=== PATIENT | male | born 1980 | race Asian ===

== ENCOUNTER 2020-03-25 13:45 | Inpatient (IN) | payer BC, SELFPAY ==
[~2020-03-25] VITALS: Ht 170.2 cm; Wt 69.9 kg
[2020-03-25 14:05] VITALS: Ht 170.2 cm; Wt 69.9 kg
--- NOTE | 2020-03-25 14:14 | NUR ---
PT BIBA FOR COUGH; STS TESTED "INCONCLUSIVE" FOR COVID LAST WEEK BUT STS "MY WHOLE FAMILY HAS IT, AND I HAVE ALL THE SYMPTOMS SO I'M SURE IM POSITIVE." PT NOTED COUGHING WHILE TALKING. NO PAIN AT THIS TIME.
--- NOTE | 2020-03-25 16:12 | NUR ---
PATIENT WAS ADVISED BY A FAMILY FRIEND TO CALL EMS FOR LOW O2 SATURATION AT HOME. PULSE OX AT HOME WAS IN THE MID 80'S. PATIENT HAS HEADACHE FIRST LAST SATURDAY AND HAD NYQUIL AT NIGHT AND GOT BETTER SATURDAY MORNING LAST WEEK BUT AT NIGHT TIME FEVER WILL RETURN. THIS LAST SATURDAY THIS WEEK, COUGH HAS GOTTEN WORSE. COUGH IS NON PRODUCTIVE. PATIENT IS TACHYPNEIC. NO PAIN REPORTED. PATIENT IS ABLE TO MAINTAIN O2 SATURATION ABOVE 95 PERCENT ON 2 LITERS OF O2 VIA NC. BREATH SOUNDS CLEAR X ALL LUNG HINTON.
[2020-03-25 16:30] LABS: BASOPHIL % 0.1 % (0-2); PLATELET COUNT 199 x10^3mcL (130-400); RED CELL DISTRIBUTION WIDTH 12.6 % (11.5-14.5)
--- NOTE | 2020-03-25 16:38 | NUR ---
PROVIDER OKAY TO GIVE TORADOL, NO PAIN OR FEVER AT THIS TIME.
[2020-03-25 16:51] LABS: UA SPECIFIC GRAVITY 1.025 (1.005-1.035); microscopic required? YES; urine erythrocyte NEGATIVE (NEGATIVE)
[2020-03-25 16:54] LABS: CALCIUM 7.7 mg/dL (8.5-10.1); CARBON DIOXIDE 24.3 mmol/L (21-32); CHLORIDE SERUM 104 mmol/L (98-107); CREATININE SERUM 0.9 mg/dL (0.7-1.3); GFR1 > 60 mL/min; GLUCOSE SERUM 101 mg/dL (74-106); POTASSIUM SERUM 3.8 mmol/L (3.5-5.1); SODIUM SERUM 140 mmol/L (136-145)
[2020-03-25 16:59] LABS: ALBUMIN 2.9 g/dL (3.4-5.0); ALKALINE PHOSPHATASE 33 U/L (46-116); ALT/SGPT 45 U/L (16-63); AST/SGOT 54 U/L (15-37); BILIRUBIN TOTAL 0.34 mg/dL (0.20-1.00); C REACTIVE PROTEIN 3.9 mg/dL (<=0.9); LACTIC DEHYDROGENASE (LDH) 316 U/L (100-190); TOTAL PROTEIN, SERUM 6.9 g/dL (6.4-8.2)
--- NOTE | 2020-03-25 17:02 | NUR ---
DR. ROBLES IS AWARE OF COVID ABRIL POSITIVE. PATIENT REMAINS TACHYPNEIC AND WITH SOB ON EXERTION. PATIENT UP TO THE BEDSIDE SINK AND HAS THE O2 VIA NC OFF FOR ABOUT A MINUTE. O2 SATURATION DROPPED TO 93 PERCENT. O2 DOWN TO 1 LITER/MIN VIA NC. O2 SATURATION TO 95.
[2020-03-25 17:39] LABS: CHOLESTEROL/HDL RATIO 4.4
--- NOTE | 2020-03-25 19:20 | NUR ---
REPORT GIVEN TO LENA AT 1825. REPORT GIVEN TO RUTH ANN HUNT.
[2020-03-25 19:21] LABS: AMPHETAMINE QUAL UR NONE DETECTED (See below)
[2020-03-25 20:19] VITALS: BP 106/63
--- NOTE | 2020-03-25 20:21 | NUR ---
RECEIVED PT FROM ED VIA ROSI, CAME IN DUE TO SOB. AAOX4. DENIES HEADACHE/DIZZINESS. ABLE TO FOLLOW COMMANDS. NO SOB NOTED, STATED THAT HE HAS DRY COUGH, O2 SAT=94% ON 3LPM/NC. DENIES CHEST PAIN/PRESSURE, SR ON THE MONITOR. DENIES ABDOMINAL PAIN/NAUSEA/VOMITING. STATED THAT HE HAD LOOSE STOOLS YESTERDAY. VOIDS. IV SITE PATENT AND INTACT. SIDE RAILS UPX2. CALL LIGHT ON REACH. ENDORSED TO PRIMARY NURSE NAUN FOR CONTINUITY OF CARE
--- NOTE | 2020-03-25 21:35 | NUR ---
PCR SWAB DONE, PATIENT PROVIDED WITH BLANKETS AND PILLOW.
[2020-03-26] VITALS (7 sets, daily range): BP systolic 96–124; BP diastolic 53–75
--- NOTE | 2020-03-26 00:20 | NUR ---
PATIENT SLEEPING AT THIS TIME. EU BREATHING NOTED ON 3L NC. TELE #[address] TOLERATING OXYGEN WELL. NO C/O SOB AT THIS TIME.
--- NOTE | 2020-03-26 07:21 | NUR ---
REMAINS IN NO ACUTE DISTRESS AT THIS TIME. NSR ON TELE. ALL NEEDS ATTENDED TO. EU BREATHING NOTED ON 3L NC. CARE ENDORSED TO DAY SHIFT NURSE.
[2020-03-26 07:24] LABS: BASOPHIL % 0.1 % (0-2); PLATELET COUNT 203 x10^3mcL (130-400); RED CELL DISTRIBUTION WIDTH 11.9 % (11.5-14.5)
[2020-03-26 07:50] LABS: CALCIUM 7.5 mg/dL (8.5-10.1); CARBON DIOXIDE 23.2 mmol/L (21-32); CHLORIDE SERUM 104 mmol/L (98-107); GFR1 > 60 mL/min; GLUCOSE SERUM 101 mg/dL (74-106); MAGNESIUM 2.2 mg/dL (1.8-2.4); PHOSPHOROUS 2.7 mg/dL (2.5-4.9); POTASSIUM SERUM 3.6 mmol/L (3.5-5.1); SODIUM SERUM 139 mmol/L (136-145)
--- NOTE | 2020-03-26 07:56 | NUR ---
RECEIVED PATIENT WITH VS WNL, O2 SAT 96% AT 3L NC. PATIENT RESTING IN BED. DROPLET ISOLATION FOR COVID+, IV ACCESS TO LFA, HL, PATENT. BREATHING UNLABORED AND EVEN, NO ACUTE RESP DISTRESS NOTED. SKIN CDI. CALL LIGHT WITHIN REACH, SAFETY MEASURE IN PLACE. WILL CONTINUE TO MONITOR
--- NOTE | 2020-03-26 11:13 | NUR ---
BREATHING EVEN, UNLABORED, NO ACUTE RESP DISTRESS NOTED. STILL HAVING O2 3L NC. SAFETY MEASURE IN PLACE, CALL LIGHT WITHIN REACH. WILL CONTINUE TO MONITOR
--- NOTE | 2020-03-26 12:00 | NUR ---
SPO2 WENT DOWN TO 88-89% AT O2 3L NC. BREATHING LABORED AND PT STATE FEELING SOB. INCREASED O2 TO 5L NC BUT PT STILL HAS DIFFICULTY BREATHING AND O2 SAT 88%. CHANGED O2 TO 6L SIMPLE MASK, O2 SAT WENT UP TO 95%, PT STATES HE BREATHES BETTER WITH SIMPLE MASK AND DIFFICULTY OF BREATH IMPROVED. BREATHING EVEN AND UNLABORED NOW, NO ACUTE RESP DISTRESS NOTED. CALL LIGHT WITHIN REACH, SAFETY MEASURE IN PLACE. WILL CONTINUE TO MONITOR
--- NOTE | 2020-03-26 16:40 | NUR ---
O2 SATS 90% ON 6L VIA SIMPLE MASK, O2 INCREASED TO 8L AAND SATS NOW 92%. WILL NOTIFY .PT PLACED ON CONTINUE PULSE OX.FOR MONITORING.
--- NOTE | 2020-03-26 18:23 | NUR ---
PT RESTING IN BED, BREAETHING EVEN, UNLABORED, NO ACUTE RESP DISTRESS NOTED. O2 SAT 95-97% AT 7L SIMPLE MASK. HL PATENT. DENIES PAIN, SOB, N/V.SAFETY MEASURE IN PLACE, CALL LIGHT WITHIN REACH. WILL ENDORSE TO HEARING CONSULTANT NURSE
--- NOTE | 2020-03-26 18:30 | NUR ---
DR RO ORDER REMDESIVER 200MG INITIAL DOSE NOW AND 100MG X4DAYS, 1UNIT PLASMA (TELEPHONE ORDER)
--- NOTE | 2020-03-26 18:45 | NUR ---
NURSING CO-SIGN THE DOCUMENTATION ENTERED BY THE RN LISA HAS BEEN REVIEWED. REVIEWED/CO-SIGNED BY: Rylee Peters DOCUMENTATION DONE BY:RENETTA NAYLOR
--- NOTE | 2020-03-26 19:10 | NUR ---
RECEIVED PATIENT FROM DAY SHIFT NURSE. PATIENT IN NO ACUTE DISTRESS AT THIS TIME. AWAKE, ALERT AND ORIENTEDX4. DENIES BARRY OR DIZZINESS. SR ON TELE. DENIES CHEST PAIN OR CHEST PRESSURE. EU BREATHING NOTED ON 7L SIMPLE MASK. DENIES SOB AND NO S/S OF SOB. DRY COUGH NOTED, NON PRODUCTIVE. BED IN LOWEST POSITION. CALL LIGHT WITHIN REACH. SIDE RAILS UPX2.
--- NOTE | 2020-03-27 00:10 | NUR ---
SLEEPING AT THIS TIME. NO ACUTE DISTRESS. EU BREATHING NOTED 7L ON SIMPLE MASK. TELE #[address] BED IN LOWEST POSITION. CALL LIGHT WITHIN REACH. SIDE RAILS UP X2. ISOLATION PRECAUTIONS IN PLACE.
--- NOTE | 2020-03-27 04:43 | NUR ---
PRE TRANSFUSION VITALS: TEMP 97.4, HR 89, BP 94/57, RESP 18, SPO2 91%. EDUCATED PATIENT ON POSSIBLE ADVERSE REACTION SYMPTOMS AND INSTRUCTED TO USE CALL LIGHT IMMEDIATELY NEEDED. PATIENT VERBALIZED UNDERSTANDING. TRANSFUSION STARTED SLOW AT 60 ML/HR. CALL LIGHT WITHIN REACH.
--- NOTE | 2020-03-27 05:11 | NUR ---
VITALS STABLE. TOLERATING TRANSFUSION WELL, NO ADVERSE REACTION. PATIENT STATES HE FEELS OK. INSTRUCTED TO USE CALL LIGHT NEEDED FOR ANY REACTION, CALL LIGHT WITHIN REACH. INCREASED RATE TO INFUSE WITHIN AN HR.
[2020-03-27 05:30] VITALS: BP 91/53
--- NOTE | 2020-03-27 07:35 | NUR ---
RECEIVED PT FROM MUD JACK NOZZLEMAN NURSE. PT AWAKE, ALERT AND FOLLOW COMMANDS. NO ACUTE RESP DISTRESS NOTED. O2 SAT 95-97% AT 7L SIMPLE MASK. PT HAS DRY COUGH AND REQUEST COUGH MEDS, WILL GIVE MUCINEX. TELE#22. LAST BM 03/25/20. IV SALINE LOCK TO LFA 20G.DENIES PAIN, SOB, DIZZINESS, N/V AT THIS TIME. SAFETY MEASURE IN PLACE. WILL CONTINUE TO MONITOR.
[2020-03-27 07:37] LABS: PLATELET COUNT 273 x10^3mcL (130-400)
[2020-03-27 07:40] LABS: BASOPHIL % 0 % (0-2)
--- NOTE | 2020-03-27 07:41 | NUR ---
CALLED PHARMACY TO VERIFY REMDESEVIR BECAUSE IT HAS BEEN UNVERIFIED SINCE 1830 YESTERDAY. PHARMACY SAID THAT THE FIRST DOSE OF REMDESEVIR WOULD START AT 1700 TODAY.
[2020-03-27 07:43] LABS: C REACTIVE PROTEIN 8.6 mg/dL (<=0.9); CALCIUM 8.5 mg/dL (8.5-10.1); CARBON DIOXIDE 24.6 mmol/L (21-32); CHLORIDE SERUM 103 mmol/L (98-107); CREATININE SERUM 0.9 mg/dL (0.7-1.3); GFR1 > 60 mL/min; GLUCOSE SERUM 117 mg/dL (74-106); POTASSIUM SERUM 3.7 mmol/L (3.5-5.1); SODIUM SERUM 140 mmol/L (136-145)
[2020-03-27 08:24] VITALS: BP 94/53
[2020-03-27 08:33] LABS: BILIRUBIN DIRECT 0.13 mg/dL (0.0-0.2); BILIRUBIN TOTAL 0.3 mg/dL (0.20-1.00); TOTAL PROTEIN, SERUM 6.7 g/dL (6.4-8.2)
[2020-03-27 09:01] LABS: ALBUMIN 2.7 g/dL (3.4-5.0)
--- NOTE | 2020-03-27 10:14 | NUR ---
RT AT BEDSIDE WITH PATIENT. BREATHING EVEN, UNLABORED. NO ACUTE RESP DISTRESS NOTED. DENIES PAIN, SOB, DIZZINESS. RT INCREASE O2 LEVEL TO 9L SIMPLE MASK BECAUSE O2 SAT WAS 94-95%. O2 SAT IS 97% AT 9L SIMPLE MASK AT THIS TIME. CALL LIGHT WITHIN REACH. WILL CONTINUE TO MONITOR
[2020-03-27 11:52] LABS: ERYTHROCYTE SED RATE 100 mm/hr (0-15)
--- NOTE | 2020-03-27 12:00 | NUR ---
O2 SAT DECREASED TO 88-89% AT 9L SIMPLE MASK, CHANGED O2 TO 15L SIMPLE MASK AND SPO2 STILL 89-90%. CHANGED O2 LEVEL TO 15L NON-REBREATHER AND SPO2 WENT BACK 98-99% PATIENT SITTING IN CHAIR AND WATCH TV NOW. BREATHING EVEN, UNLABORED, NO ACUTE RESP DISTRESS AT THIS TIME. TESSILON GIVEN FOR COUGH. CALL LIGHT WITHIN REACH. WILL CONTINUE TO MONITOR
[2020-03-27 12:13] VITALS: BP 96/51
--- NOTE | 2020-03-27 14:45 | NUR ---
PT DESAT TO 77-82% BECAUSE HE TOOK OFF THE OXYGEN MASK AND WENT TO RESTROOM. REAPPLIED 15L O2 WITH NON-REBREATHER AND O2 SAT STARTED WENT BACK UP SLOWLY 91-95%. REASSURES PT NOT TO TAKE OFF THE OXYGEN MASK AND GO TO RESTROOM. HE NEEDS TO KEEP THE OXYGEN MASK ON AT ALL TIME TO MAINTAIN O2 SATUARATION. URINAL AND BASIN AT BEDSIDE WITH PATIENT. PT VERBALY UNDERSTOOD AND WOULD NOT TAKE OFF OXYGEN MASK ANY MORE. PT IS IN BED, SPO2 95-96%, BREATHING UNLABORED, NO ACUTE RESP DISTRESS NOTED. CALL LIGHT WITHIN REACH. WILL CONTINUE TO MONITOR
[2020-03-27 16:06] VITALS: BP 100/44
--- NOTE | 2020-03-27 17:33 | NUR ---
SPO2 88-91% AT 15L NON-REBREATHER, PT HAS TAKEN OXYGEN MASK ON AND OFF FOR I.S., DRIKING FLUID. REASSURES PATIENT AGAIN TO KEEP OXYGEN MASK ON. SPOKE AND NOTIFIED RT CHUCK ABOUT PATIENT CONDITION. PT IS SITTING IN CHAIR AND WATCH TV. REMDESIVIR RUNNING AT 100ML/HR INFUSING WELL, IV SITE PATENT, CDI AND NO S/S OF INFECTION/INFILTRATION. CALL LIGHT WITHIN REACH. WILL CONTINUE TO MONITOR.
--- NOTE | 2020-03-27 18:39 | NUR ---
PT RESTING IN BED. O2 SAT 85-92% BECAUSE PT KEEP TAKE OFF OXYGEN MASK. COMMODE AT BEDSIDE TO PREVENT PT GOING TO RESTROOM AND TAKE OFF THE O2 MASK. BREATHING UNLABORED AND NO ACUTE RESP DISTRESS NOTED. REMDESIVIR COMPLETED. HL PATENT. DENIES PAIN, SOB, DIZZINESS. WILL ENDORSE TO [facility] SHIFT NURSE
--- NOTE | 2020-03-27 18:59 | NUR ---
REMAINS IN NO ACUTE DISTRESS. ON NRB AT 15L SATS 88-92%. NO C/O PAIN OR DISCOMFORT. CALL LIGHT WITHIN REACH.
--- NOTE | 2020-03-27 19:00 | NUR ---
NURSING CO-SIGN THE DOCUMENTATION ENTERED BY THE RN LISA HAS BEEN REVIEWED. REVIEWED/CO-SIGNED BY: Rylee Peters DOCUMENTATION DONE BY: DAYDAY JACKSON
--- NOTE | 2020-03-27 19:10 | NUR ---
RECEIVED PATIENT FROM DAY SHIFT NURSE. AWAKE, ALERT AND ORIENTEDX4. EU BREATHING NOTED ON 15L NON REBREATHER. DENIES SOB AT THIS TIME. ENCOURAGED TO LAY PRONE AND PRACTICE BREATHING EXERCISES. NSR ON TELE. URINAL AND COMMODE AT BEDISDE. NO C/O OF PAIN. DRY COUGH NOTED. IV WNL. BED IN LOWEST POSITION. CALL LIGHT WITHIN REACH. SIDE RAILS UP X2.
[2020-03-27 20:38] VITALS: BP 103/60
--- NOTE | 2020-03-28 00:10 | NUR ---
PATIENT SLEEPING AT THIS TIME, NO ACUTE DISTRESS. EU BREATHING NOTED ON 15L NON REBREATHER. SPO2 > 90%. NSR ON TELE. CONT PULSE OX IN PLACE. URINAL/COMMODE AT BEDSIDE. BED IN LOWEST POSITION. CALL LIGHT WITHIN REACH. PROTOCOLS IN PLACE.
[2020-03-28 05:40] VITALS: BP 92/52
--- NOTE | 2020-03-28 06:10 | NUR ---
PATIENT SPO2 DROPPING TO 70S AND SUSTAINING. PATIENT ON 15L NON REBREATHER AT THIS TIME. CALLED RT AND STATED THEY WOULD COME UP. PATIENT PLACED ON OXYMIZER AND NON REBREATHER. SPO2 AT 91% AT THIS TIME.
--- NOTE | 2020-03-28 06:56 | NUR ---
PATIENT SPO2 95% AT THIS TIME ON NO REBREATHER AND OXYMIZER. NO DISTRESS AT THIS TIME. WILL CONTINUE TO MONITOR. WILL ENDORSE CARE TO ONCOMING SHIFT NURSE.
[2020-03-28 07:24] LABS: BASOPHIL % 0.1 % (0-2); PLATELET COUNT 308 x10^3mcL (130-400)
[2020-03-28 07:38] LABS: CALCIUM 8.3 mg/dL (8.5-10.1); CARBON DIOXIDE 26.8 mmol/L (21-32); CHLORIDE SERUM 104 mmol/L (98-107); CREATININE SERUM 0.8 mg/dL (0.7-1.3); GFR1 > 60 mL/min; GLUCOSE SERUM 116 mg/dL (74-106); POTASSIUM SERUM 3.8 mmol/L (3.5-5.1); SODIUM SERUM 140 mmol/L (136-145)
--- NOTE | 2020-03-28 08:00 | NUR ---
GAVE PATIENT TEACHING ON IMPORTANCE OF PRONING AND OF DOING IS, HE AGREED. HE SAID HE WOULD LATER.
[2020-03-28 08:03] LABS: BILIRUBIN DIRECT 0.14 mg/dL (0.0-0.2); BILIRUBIN TOTAL 0.3 mg/dL (0.20-1.00); TOTAL PROTEIN, SERUM 7.1 g/dL (6.4-8.2)
[2020-03-28 08:07] LABS: ALBUMIN 2.8 g/dL (3.4-5.0)
[2020-03-28 08:35] VITALS: BP 95/60
--- NOTE | 2020-03-28 09:32 | NUR ---
AAO TIMES 4. TELE # 22 SR. LUNGS DIMINISHED BILATERALLY. O2 SAT ON 15L NRB AND OXIMIZER 12L IS 89-90%. BS'S ACTIVE TIMES 4. DAMIAN STRONG. SOB WITH ACTIVITY. COOPERATIVE. NO C/O PAIN.
[2020-03-28 12:28] VITALS: BP 96/54
[2020-03-28 16:33] VITALS: BP 94/52
--- NOTE | 2020-03-28 17:28 | NUR ---
AAO TIMES 4. TELE # 22 SR. NO C/O PAIN. O2 15 L NRB MASK, AND OXIMIZER 12L. O2 SAT 88-90%. IV SITE LEFT HAND PATENT, CDI.
--- NOTE | 2020-03-28 20:00 | NUR ---
RECEIVED PT SITTING IN BED EATING THE REST OF HIS DINNER. PT DOES NOT APPEAR TO BE IN ANY DISTRESS. TELE 22 SHOWS NSR WITH HR AT 81. NO SOB NOTED AT THIS TIME. PT ON 15L O2 VIA NRB MASK AND 12L OXIMIZER. ENCOURAGED PT TO UTILIZE INCENTIVE SPIROMETER. BS ACTIVE IN ALL FOUR QUADS. NO ABD PAIN NOTED. ABD IS FLAT NON DISTENDED. BSC AT BEDSIDE. PT VOIDING FREELY WITH URINAL, EMPTIED 700ML OF LIGHT YELLOW URINE. FULL ROM. IV TO LFA PATENT. SHIFT ASSESSMENT COMPLETED. CALL LIGHT WITHIN REACH. BED IS IN LOWEST POSITION. WILL CONTINUE TO MONITOR CLOSELY.
--- NOTE | 2020-03-28 22:00 | NUR ---
PT RESTING IN PRONE POSITION, BREATHING EASILY ON O2 UNCHANGED. ALL DUE MEDS GIVEN ORDERED. CALL LIGHT WITHIN REACH. WILL CONTINUE TO MONITOR CLOSELY.
[2020-03-28 22:19] VITALS: BP 115/56
--- NOTE | 2020-03-29 04:00 | NUR ---
PT DESATS AT TIMES, ENCOURAGED PT TO CONTINUE TO WEAR NRB AND PRONE, QUICKLY AFTER PT O2 SAT INCREASES TO 100%. ALL NEEDS TENDED TO. WILL CONTINUE TO MONITOR CLOSELY.
[2020-03-29 05:49] VITALS: BP 93/52
--- NOTE | 2020-03-29 06:53 | NUR ---
PT SLEPT ON AND OFF THROUGH OUT THE NIGHT. REMAINS ON 12L O2 OXIMIZER AND 15L O2 NRB.ALL NEEDS TENDED TO. WILL ENDORSE TO INCOMING SHIFT.
[2020-03-29 07:17] LABS: RED CELL DISTRIBUTION WIDTH 12.8 % (11.5-14.5)
[2020-03-29 07:47] LABS: ALKALINE PHOSPHATASE 42 U/L (46-116); ALT/SGPT 106 U/L (16-63); AST/SGOT 73 U/L (15-37); BILIRUBIN DIRECT 0.13 mg/dL (0.0-0.2); BILIRUBIN TOTAL 0.4 mg/dL (0.20-1.00); CALCIUM 8.4 mg/dL (8.5-10.1); CARBON DIOXIDE 29.8 mmol/L (21-32); CHLORIDE SERUM 102 mmol/L (98-107); CREATININE SERUM 0.9 mg/dL (0.7-1.3); GFR1 > 60 mL/min; GLUCOSE SERUM 110 mg/dL (74-106); POTASSIUM SERUM 3.7 mmol/L (3.5-5.1); SODIUM SERUM 140 mmol/L (136-145); TOTAL PROTEIN, SERUM 7.4 g/dL (6.4-8.2)
[2020-03-29 07:49] LABS: ALBUMIN 2.8 g/dL (3.4-5.0)
[2020-03-29 08:23] LABS: BASOPHIL % 0 % (0-2); PLATELET COUNT 405 x10^3mcL (130-400)
[2020-03-29 09:19] VITALS: BP 89/54
--- NOTE | 2020-03-29 10:51 | NUR ---
AAO TIMES 4. TELE # 22 SR. LUNGS DIMINISHED BILATERALLY. O2 SAT ON NRB 15L AND OXIMIZER 12L IS 90%. BS'S ACTIVE TIMES 4. DAMIAN STRONG. PERIPHERAL PULSES PALPABLE. NO EDEMA. COOOPERATIVE. IV SITE PATENT, CDI.
[2020-03-29 13:31] VITALS: BP 90/48
--- NOTE | 2020-03-29 14:48 | NUR ---
HE HAS BEEN LAYING ON HIS SIDE OR ABDOMEN, AND HIS OXYGEN SAT IS AROUND 94% ON JUST THE OXIMIZER, NO NON REBREATHER.
--- NOTE | 2020-03-29 15:39 | NUR ---
ROSSY GUN STOCKER AWARE OF PATIENT BP OF 90/48, SHE DISCONTINUED THE LASIX IV.
[2020-03-29 17:33] VITALS: BP 86/52
--- NOTE | 2020-03-29 17:58 | NUR ---
AAO TIMES 4. TELE # 22 SR. VS'S STABLE. COOPERATIVE. NO C/O PAIN. HE HAS BEEN COOPERATING WITH TURNING HIMSELF SIDE TO SIDE AND PRONE, AND HIS O2 SAT HAS BEEN 94% ON JUST THE OXIMIZER 12L.
--- NOTE | 2020-03-29 20:00 | NUR ---
RECEIVED PT AA&O. NO C/O PAIN. SITTING UP IN BED. IV PATENT. REMDESIVERE FINISHED . VITALS STABLE. WILL CONTINUE TO MONITOR.
[2020-03-29 22:02] VITALS: BP 92/51
--- NOTE | 2020-03-30 06:52 | NUR ---
PT RESTING COMFORTABLY. ONLY USED OXIMYZER 12 L THROUGHOUT NIGHT WITH OUT RESPIRATORY DITRESS. BP RUNS LOW. PT EDUCATED ON RISING SLOWLY AND SITTING ON EDGE OF BED FOR A MINUTE BEFORE TRYING TO AMBULATE. NO DIZZINESS NOTED. CALL LLIGHT WITHIN REACH
[2020-03-30 07:15] LABS: BILIRUBIN DIRECT 0.17 mg/dL (0.0-0.2); BILIRUBIN TOTAL 0.5 mg/dL (0.20-1.00); TOTAL PROTEIN, SERUM 6.8 g/dL (6.4-8.2)
--- NOTE | 2020-03-30 07:30 | NUR ---
RECIEVED REPORT FROM PM NURSE. PT CURRENTLY IN COVID ISOLATION. HR 71, O2 SAT 97%. WILL FOLLOW UP SHORTLY
[2020-03-30 08:48] VITALS: BP 77/41
--- NOTE | 2020-03-30 11:33 | NUR ---
PT LYING IN BED COMFORTABLY. PRONE POSITION. BREATHING EVEN, NO WOB NOTED. HR 62, O2 SAT 92% 12L OXYMIZER. PT HAS NO QUESTIONS/CONCERNS AT THIS TIME. NO C/O PAIN. WILL CONTINUE TO MONITOR.
[2020-03-30 11:37] VITALS: BP 81/47
--- NOTE | 2020-03-30 14:16 | NUR ---
PT USING INCENTICE SPIROMETER WHILE IN BED. EDUCATED ON USE. BREATHING EVEN, UNLABORED. O2 SAT 92% 12L OXYMIZER. PT IN NO APAPRENT DISTRESS OR DISCOMFORT. WILL CONTINUE TO MONITOR. BED IN LOWEST POSITION, RAILS UP, CALL LIGHT WITHIN REACH
--- NOTE | 2020-03-30 15:48 | NUR ---
PT LYING IN BED PRONING. STATES "I FEEL GOOD!". O2 SAT 99%, HR 66. WILL CONTINUE TO MONITOR. BED IN LOWEST POSITION, RAILS UP, CALL LIGHT WITHIN REACH
[2020-03-30 17:36] VITALS: BP 99/59
--- NOTE | 2020-03-30 17:44 | NUR ---
PT LYING IN BED SUPINE. BREATHING EVEN, UNLABORED. HR 59, O2 SAT 97%. BREATHING EVEN, UNLABORED. PT IN NO ACUTE DISTRESS OR DISCOMFORT. BED IN LOWEST POSITION, RAILS UP, CALL LIGHT WITHIN REACH.
--- NOTE | 2020-03-30 18:59 | NUR ---
PT LYING IN BED, PRONING. BREATHING EVEN, UNLABORED. PT REPORTS NO DISCOMFORT OR PAIN. WILL ENDORSE TO PM NURSE
--- NOTE | 2020-03-30 20:00 | NUR ---
RECEIVED PT AA&0. NO C/O PAIN. NO DISTRESS NOTED. OXIMYZER 12 L. NO HIGH FLOW NEEEDED. 97% O2. ASKED IF HE WANTED TO TRY AND REDUCE FLOW SLIGHTLY AND HE STATED IN AM HE WOULD FEEL MORE CPOMFORTABLE. CALL LIGHT WITHIN REACH. WATER GIVEN. DUMPED 250 MLS YELLOW URINE
[2020-03-30 21:07] VITALS: BP 93/50
[2020-03-31] VITALS (8 sets, daily range): BP systolic 83–138; BP diastolic 49–58
[2020-03-31 07:01] LABS: BASOPHIL % 0.2 % (0-2); RED CELL DISTRIBUTION WIDTH 12.8 % (11.5-14.5)
[2020-03-31 07:18] LABS: PLATELET COUNT 464 x10^3mcL (130-400)
--- NOTE | 2020-03-31 07:21 | NUR ---
RECIEVED REPORT FROM PM NURSE. PT CURRENTLY IN COVID ISOLATION. WILL MAKE ROUNDS SHORTLY.
[2020-03-31 07:34] LABS: ALBUMIN 2.8 g/dL (3.4-5.0); ALKALINE PHOSPHATASE 40 U/L (46-116); ALT/SGPT 133 U/L (16-63); AST/SGOT 59 U/L (15-37); BILIRUBIN DIRECT 0.17 mg/dL (0.0-0.2); BILIRUBIN TOTAL 0.5 mg/dL (0.20-1.00); CALCIUM 8.7 mg/dL (8.5-10.1); CHLORIDE SERUM 102 mmol/L (98-107); CREATININE SERUM 0.9 mg/dL (0.7-1.3); GFR1 > 60 mL/min; GLUCOSE SERUM 88 mg/dL (74-106); POTASSIUM SERUM 4.1 mmol/L (3.5-5.1); SODIUM SERUM 139 mmol/L (136-145)
--- NOTE | 2020-03-31 10:18 | NUR ---
PY SITTING IN BED. EDUCATED ON DISEASE PROCESS AND TREATMENT GOALS. PT HAS NO FURTHER QUESTIONS OR CONCERNS AT THIS TIME. BREATHING EVEN, UNLABORED. NO ACUTE DISTRESS OR DISCOMFORT. BED IN LOWEST POSITION, CALL LIGHT WITHIN REACH, RAILS UP
--- NOTE | 2020-03-31 14:19 | NUR ---
PT PRONING. HR 85, O2 SAT 94 12L OXYMIZER. PT BREATHING EVEN, UNLABORED. PT IN NO ACUTE DISTRESS OR DISCOMFORT. WILL CONTINUE TO MONITOR. BED IN LOWEST POSITION, RAILS UP, CALL LIGHT WITHIN REACH.
--- NOTE | 2020-03-31 14:54 | NUR ---
1. Continue with regular diet as tolerate
--- NOTE | 2020-03-31 14:54 | NUR ---
Initial Nutrition Assessment: LbA MOE NAYLOR 40M MR Dx: PNA, hypoxia, COVID+ PMHx: none noted PSHx: none noted Labs: (03/31) Hct 39L, BUN 31H, AST 59H, ALT 133H, Alk ph 40L, albumin 2.8L, (03/27) CRP 8.6H, (03/25) HDL 29L *other lipid panel WNL on 03/25 Meds: Zinc sulfate, vitamin D, Vitamin C, Decadron, Lovenox, Remdesevir, [place], Tessalon, Mucinex, Tylenol Diet: Regular PO intake since admission: 15-100% x 14 meals with average PO intake of 69% Ht: 170.18cm/67in Wt: 69.853kg/154lbs BMI: 24.1 Bed scale: not accessible IBW:67.27kg/148lbs %IBW: 103.84% UBW: unknown Age: 40 Food Allergies: unknown Edema: no edema noted Last BM: 03/31 and formed Skin: skin intact Nagi: 21 Per H and P (03/25), Patient is a 40-year-old male with no significant pmhx who comes to the ED for having fever, sob and dry cough. He states that his brother's family was covid positive and he was with them 2 weeks ago. He that started having headache, fever and chills for a week, but then since Saturday he also started to develop cough and shortness of breath. He is also being feeling really tired and fatigued. His and 10-year-old son are also COVID positive. Today he felt really lightheaded and dizzy, his bought an oximeter today and it measured his oxygen to be at 85%. It was then that he decided to come to the ED. Patient denies any symptoms, denies nausea, vomit, diarrhea, chest pain or constipation. Pt was admitted with dx: acute respiratory failure and sepsis 2/2 COVID 19 PNA, DVT RD Note (03/31/2020) RD tried to reach pt via phone, but pt did not respond to bedside phone call. Per pt's primary RN, pt had 90% of his breakfast today, and he was able to tolerate diet with no chewing/swallowing difficulty. Per progress note (03/31), pt is on 12 L oxymizer. Pt's current PO intake is currently meeting 92.5% of estimated kcal needs, 83% of estimated protein needs. Problem with: N/V/D/C: none per RN Problems with: Chewing: Swallowing: none per RN Current appetite: good per RN; finished 90% of breakfast this AM Recent wt change: unknown %wt change: unknown Vitamin/Supplement use: unknown Special diet at home: unknown Physical activity: unknown Nutrition education given (specify specific nutrition education and handout given): not given at this time. No indication for nutritional education. Food-drug interactions? Education given? n/a Estimated Nutritional Needs Based on ideal body weight (67kg) Energy: 1205-3506 kcal/day (30-35 kcal/kg for viral infection and sepsis) Protein: 100-134 g/day (1.5-2 g/kg for viral infection and sepsis) Fluid: 2669-9197 mL/day (1 mL/kcal) Nutrition Diagnosis: 1. Increased energy and protein needs r/t viral infection and critical illness a/e/b pt has sepsis and COVID 19. Intervention 1. Continue with regular diet as tolerate Monitor/Evaluate Goal: PO intake at least 75% of estimated needs Monitor: PO intake, Labs, GI function F/U in 3-5 days as moderate risk 04/03-
--- NOTE | 2020-03-31 15:47 | NUR ---
PATIENT OBSERVED IN PRONE POSITION AT THIS TIME. PATIENT O2 IS 96-97%. DECREASED PATIENT OXYGEN TO 10 LPM OXYMIZER. STATES HE FEELS "HE CAN BREATH BETTER" WHILE PRONE. ENCOURAGED TO KEEP PRONING TOLERATED.
--- NOTE | 2020-03-31 18:16 | NUR ---
PT SITTING IN CHAIR. STATES HE HAS BEEN PRONING "I FEEL MUCH BETTER NOW". BREATHING EVEN, UNLABORED. SUPPLEMENTAL O2 REDUCED TO 10L OXYMIZER. PT TOLERATING WELL. WILL ENDORSE TO PM NURSE. BED IN LOWEST POSITION, RAILS UP, CALL LIGHT WITHIN REACH.
--- NOTE | 2020-03-31 20:15 | NUR ---
ASSESSMENT COMPLETE CALL LIGHT IN REACH PLAN OF CARE REVIEWED WILL CONTINUE TO MONITOR AND ASSESS
--- NOTE | 2020-04-01 00:04 | NUR ---
NO CHANGES AT THIS TIME CONDITION GUARDED WILL CONTINUE TO MONITOR AND ASSESS
--- NOTE | 2020-04-01 04:59 | NUR ---
NO CHANGES NOTED ALL NEEDS ANTICIPATED AND MET CONDITION GUARDED
[2020-04-01 07:08] VITALS: BP 91/48
[2020-04-01 07:30] LABS: BASOPHIL % 0.1 % (0-2); RED CELL DISTRIBUTION WIDTH 12.1 % (11.5-14.5)
[2020-04-01 07:32] LABS: CALCIUM 8.6 mg/dL (8.5-10.1); CARBON DIOXIDE 27.6 mmol/L (21-32); CHLORIDE SERUM 103 mmol/L (98-107); CREATININE SERUM 0.9 mg/dL (0.7-1.3); GFR1 > 60 mL/min; GLUCOSE SERUM 87 mg/dL (74-106); SODIUM SERUM 139 mmol/L (136-145)
[2020-04-01 09:14] VITALS: BP 87/49
[2020-04-01 09:38] LABS: PLATELET COUNT 504 x10^3mcL (130-400)
--- NOTE | 2020-04-01 11:18 | NUR ---
PATIENTIS AOX4, NSR, RESPIRATIONS EVEN AND UNLABORED ON 8L OXYMIZER LUNGS DIMINISHED BIALTERAL BASES. REPORTS SOB ON EXERTION. ENCOURAGED INCENTIVE SPIROMETER USE. URINE ID DARK, ENCOURAGED HYDRATION. UPDATED PATIENT ON PLAN OF CARE. PT VERBALIZED UNDERSTANDING. WILL CONTINUE TO MONITOR.
[2020-04-01 13:30] VITALS: BP 88/49
[2020-04-01 17:21] VITALS: BP 91/55
--- NOTE | 2020-04-01 18:34 | NUR ---
PATIENT IS IN [facility], SAYS THAT TODAY WAS A "TURNING POINT" FOR HIM. WAS ON 8L OXYMIZER SPO2 96%. ABLE TO AMBULATE TO THE BATHROOM WITH ONLY MILD SHORTNESS OF BREATH, WHICH ACCORDING TO THE PATIENT IS MUCH IMRPOVED FROM YESTERDAY. WEANED TO 6L OXYMIZER 95%. ENCOURAGED DEEP BREATHING/INCENTIVE SPIROMETER. WILL ENDORSE TO NIGHT RN.
--- NOTE | 2020-04-01 19:40 | NUR ---
PT RECEIVED IN BED, RESTING COMFORTABLY A/O X 4 ABLE TO MAKE NEEDS KNOWN, ABLE TO FOLLOW COMMANDS, PT SPEECH IS CLR, NO C/O BARRY OR DIZZNESS. LUNGS SOUNDS DIMINISHED BILATERALLY, RESP EVEN AND UNLABORED, PT REPORTS FEELING BETTER AND IS ABLE TO TOLERATE MORE GETTING UP IN BED WITHOUT BEING EXTREMELY SOB, PT ON 6L OXYMIZER WITH SPO2 OF 93%. RADIAL AND PEDAL PULSES PRESENT, NO EDEMA NOTED. PT ON TELE #22 NSR, NO C/O CHEST PAIN. ABD FLAT AND SOFT, ACTIVE BS PRESENT X4 QUADS, NO C/O NVD. VOIDS FREELY, NO REPORTED DISCOMFOT OR PAIN. PT ABLE TO AMBULATE TO THE RESTROOM, GENERALIZED WEKANESS OBSERVED, JOINTS INTACT, FULL ACTIVE ROM. BED TO LOWEST POSITION, CALL LIGHT WITHINN REACH, WILL CONT TO MONITOR PT FOR CHANGES IN CONDITION.
[2020-04-01 20:41] VITALS: BP 98/59
--- NOTE | 2020-04-01 22:41 | NUR ---
HOLD INFLUENZA VACCINE FOR NOW PER DR. MENDOZA. MADE THE PT AWARE.
[2020-04-02 05:31] VITALS: BP 86/49
--- NOTE | 2020-04-02 06:55 | NUR ---
PT BP RE TAKEN MULTIPLE TIMES. HIGHEST BP 90/40, LOWEST IS 80/45. PT DENIES DIZZINES, SOB, BARRY OR CHEST PAIN. DR. MCCLURE NOTIFIED. RECEIVED NO NEW ORDER AT THIS TIME.
[2020-04-02 07:21] VITALS: BP 90/40
[2020-04-02 08:11] LABS: CALCIUM 8.6 mg/dL (8.5-10.1); CARBON DIOXIDE 25.7 mmol/L (21-32); CHLORIDE SERUM 102 mmol/L (98-107); CREATININE SERUM 0.8 mg/dL (0.7-1.3); GFR1 > 60 mL/min; GLUCOSE SERUM 86 mg/dL (74-106); POTASSIUM SERUM 3.6 mmol/L (3.5-5.1); SODIUM SERUM 137 mmol/L (136-145)
[2020-04-02 08:58] VITALS: BP 79/49
--- NOTE | 2020-04-02 10:39 | NUR ---
The patient's BP was low this morning. Checked patient, he is in bed resting. He had no complaints of dizziness and/or nausea. Legs elevated, will continue to monitor. No BP medications, all medications per providers orders given. The patient made comfortable. Will contiue to monitor. Call light within reach.
[2020-04-02 11:18] LABS: BASOPHIL % 0.1 % (0-2)
[2020-04-02 11:46] LABS: PLATELET COUNT 477 x10^3mcL (130-400)
--- NOTE | 2020-04-02 11:55 | NUR ---
The patient is alert and oriented x4. Able to ambulate. BP retaken= 91/58, oxygem saturation around 94%-96% on 6L via oximyzer. Turned oxygen lower set at 5L via nasal cannula. The patient's oxygen saturation is curebtly at 92%-94%. Will continue to monitor. Call light norman jacobson.
[2020-04-02 12:57] VITALS: BP 95/56
[2020-04-02 17:17] VITALS: BP 91/59
--- NOTE | 2020-04-02 19:50 | NUR ---
RECEIVED IN BED, RESTING COMFORTABLY. A/O X4 ABLE TO MAKE NEEDS KNOWN, ABLE TO FOLLOW COMMANDS, SPEECH IS CLR, NO BARRY OR DIZZINESS. RESP IS EVEN AND UNLABORED,REPORTS SLIGHT SOB UPON WALKING, ON RA AT THIS TIME WITH SPO2 OF 94%, INSTRUCTED PT TO REPORT RIGHT AWAY IF BREATHING WORSEN. RADIAL AND PEDAL PULSES PRESENT, NO EDEMA NOTED. ON TELE 22, NSR, NO C/O CHEST PAIN AT THIS. ABD FLAT AND SOFT, ACTIVE BS PRESENT X4, NO NVD, LAST BM 04/02. VOIDS FREELY, NO C/O PAIN OR DICOMFORT. SKIN IS WARM, DRY AND INTACT. IV SITE TO LFA PATENT AND FLUSHING WELL. GENERALIZED WEAKNESS, ABLE TO AMBULATE TO THE RR. BE TO LOWEST POSITION, CALL LIGHT WITHIN REACH, WILL CONT TO MONITOR.
[2020-04-02 20:59] VITALS: BP 127/83
[2020-04-03 06:18] VITALS: BP 90/52
--- NOTE | 2020-04-03 06:44 | NUR ---
PT IN BED RESTING COMFORTABLY WITH EYES CLOSED, EASILY AROUSABLE. NO C/O PAIN, NO ACUTE DISTRESS NOTED. RESP IS EVEN AND UNLABORED, ON RA WITH SPO2 OF 93%. PT EXPRESSED HE WOULD LIKE TO GET ISCHARGE TODAY. PT STATES HE IS FELING SO MUCH BETTER, AND CAN CONTINUE COURSE OF HIS TREATMENT AT HOME WHERE HE CAN BE MORE COMFORTABLE AND GET MUCH MORE REST. WILL ENDORSE TO AM SHIFT NURSE TO LET MEDICAL TEAM KNOW THAT PT WOULD LIKE TO GET AN UPDATE REGARING HIS CARE. BED TO LOWEST POSITION, CALL LIGHT WITHIN REACH. WILL CONT TO MONITOR FOR CHANGES IN CONDITION AND ENDORSE TO NEXT SHIFT NURSE.
[2020-04-03 08:15] LABS: CALCIUM 8.9 mg/dL (8.5-10.1); CARBON DIOXIDE 29.7 mmol/L (21-32); CHLORIDE SERUM 105 mmol/L (98-107); GFR1 > 60 mL/min; GLUCOSE SERUM 86 mg/dL (74-106); POTASSIUM SERUM 3.9 mmol/L (3.5-5.1); SODIUM SERUM 140 mmol/L (136-145)
[2020-04-03 08:45] LABS: BASOPHIL % 0.1 % (0-2); RED CELL DISTRIBUTION WIDTH 13.2 % (11.5-14.5)
[2020-04-03 08:54] VITALS: BP 88/51
--- NOTE | 2020-04-03 12:35 | NUR ---
THE PATIENT IS ALERT AND ORIENTED X4. HE IS AMBULATORY, INDEPENDENT. THE PATIENT IS ON ROOM AIR, NO SOB NOTED. O2 SAT.= 92%-94%. NO COMPLAINTS OF PAIN. THE PATIENT IS IN DISCHARGE PLANNING. CLINICAL RESEARCH SPEC TO COORDINATE OXYGEN AT HOME. THE PATIENT IS AWARE. WILL CONTINUE TO MONITOR. CALL LIGHT WITHIN REACH.
[2020-04-03 13:11] VITALS: BP 90/56
[2020-04-03 14:24] LABS: PLATELET COUNT 509 x10^3mcL (130-400)
[2020-04-03 17:39] VITALS: BP 105/59
--- NOTE | 2020-04-03 18:03 | NUR ---
THE PATIENT IS ALERT AND ORIENTED X4. THE PATIENT IS ON ROOM AIR AND BREATHING WITH NO DIFFICULTY. HE STATES THAT HIS RECEIVED A CALL STATING THAT HIS OXYGEN WILL BE DROPPED OFF TONIGHT. HE WANTS TO GO HOME TONIGHT, HOWEVER, ORDERS ARE STILL NEEDED, THEREFORE, I EXPLAINED TO PATIENT THAT HE WILL MOST LIKELY DISCHARGE TOMORROW, ONCE THE PROVIDER COMES IN. THE PATIENT AMBULATES INDEPENDENTLY. WILL CONTINUE TO MONITOR PATIENT AND MADE COMFROTABLE. CALL LIGHT WITHIN REACH.
--- NOTE | 2020-04-03 19:40 | NUR ---
PT IN BED RESTING COMFORATBLY. A/O X 4 ABLE TO FOLLOW COMMANDS, ABLE TO MAKE NEEDS KNOWN, SPEECH IS CLR, NO BARRY OR DIZZINESS. LUNGS SOUNDS DIMINISHED BILATERALLY, RESP IS EVEN AND UNLABORED, SPO2 94% ON RA. RADIAL AND PEDAL PULSES PRESENT, NO EDEMA NOTED. PT ON TELE 22, NSR, NO CHEST PAIN AT THIS TIME. IV ON THE LFA, PTENT AND FLSUHING WELL. BED TO LOWEST POSITION, CALL LIGHT WITHIN REACH, WILL CONT TO MONITOR FOR CHANGES IN CONDITION.
[2020-04-03 22:35] VITALS: BP 94/56
[2020-04-04 06:42] VITALS: BP 98/61
--- NOTE | 2020-04-04 07:30 | NUR ---
RECEIVED PATIENT IN BED IN ISOLATION FOR + COVID 19. ALERT ORIENTED, SPEECH CLEAR, DENEIS ANY H/A CHEST PAIN OR SOB. HL PATENT LEFT F/A. FLUSHED WELL. TELE 22 NSR. RESP EVEN AND UNLABORED, LUNGS CLEAR ON ROOM AIR. DENEIS ANY COUGH OR SOB AT THIS TIME. AMBLULATES AD [place]. D/C HOME TODAY PLAN PER PATIENT.
--- NOTE | 2020-04-04 07:49 | NUR ---
PT IN BED AWAKE RESTING COMFORTABLY. NO C/O PAIN, NO ACUTE DISTRESS NOTED. RESP IS EVEN AND ULABORED. NEEDS ATTENDED AND MET. FREQUENT VISUAL MONITORING RENDERED. REMAINED ON RA WITH SPO2 OF 94%. BED TO LOWEST POSITION, CALL LIGHT WITHIN REACH ENDORSED CARE TO NEXT SHIFT NURSE.
[2020-04-04 07:58] LABS: CARBON DIOXIDE 24.5 mmol/L (21-32); CHLORIDE SERUM 102 mmol/L (98-107); CREATININE SERUM 0.8 mg/dL (0.7-1.3); GFR1 > 60 mL/min; GLUCOSE SERUM 79 mg/dL (74-106); POTASSIUM SERUM 3.9 mmol/L (3.5-5.1); SODIUM SERUM 137 mmol/L (136-145)
[2020-04-04 09:30] VITALS: BP 89/61
[2020-04-04 10:02] LABS: BASOPHIL % 0.1 % (0-2); RED CELL DISTRIBUTION WIDTH 13.3 % (11.5-14.5)
[2020-04-04 10:10] LABS: PLATELET COUNT 490 x10^3mcL (130-400)
[2020-04-04] MEDS ORDERED: ZINC SULFATE220 MG PO (10:25)
[2020-04-04] MEDS ORDERED: VENTOLIN H0.09 MG/A1 INH (10:25)
[2020-04-04] MEDS ORDERED: TES100 PO (10:26)
[2020-04-04] MEDS ORDERED: VITC PO (10:26)
[2020-04-04] MEDS ORDERED: D-10001 TAB PO (10:27)
[2020-04-04] MEDS ORDERED: DECADRON4 MG PO (10:28)
[2020-04-04 12:44] VITALS: BP 85/47
[2020-04-04 13:03] VITALS: BP 89/61
--- NOTE | 2020-04-04 13:20 | NUR ---
PATIENT'S PLAN OF CARE WAS DISCUSSED AND REVIEWED WITH TUBE SIZER AND CUTTER OPERATOR:ORESTES SORENSEN. I HAVE REVIEWED THE DATA COLLECTION BY TUBE SIZER AND CUTTER OPERATOR (NAME):ORESTES SORENSEN. ENTERED ON (DATE/TIME):04/04/20. I CONCUR WITH THE DATA AND ANY EXCEPTIONS OR COMMENTS ARE LISTED BELOW:
--- NOTE | 2020-04-04 13:40 | NUR ---
PATIENT IS READY FOR D/C HOME. HL AND TELE DC'D. DISCHARGE INSTRUCTIONS GIVEN. PERSONAL BELONGINGS LIST SIGNED. CIVID AND MEDICATION EDUCATION PROVIDED. CONDITION APPEARS STABLE. PATIENT AWAITING TO PICK HIM UP.
== END 2020-04-04 13:40 | disposition home or self-care (01) | DRG 871 ==
LOC: ED 13:45 → DU 16:34 → EDBEDREQ 16:41 → DU 19:45
PROVIDERS: Internal Medicine; Internal Medicine Infectious Disease; Specialist; ADMIT Family Medicine; ATTEND Family Medicine
PROC: XW033E5 Introduction of Remdesivir Anti-infective into Peripheral Vein, Percutaneous Approach, New Technology Group 5 (ICD-10-PCS; principal; 2020-03-27)
PROC: XW13325 Transfusion of Convalescent Plasma (Nonautologous) into Peripheral Vein, Percutaneous Approach, New Technology Group 5 (ICD-10-PCS; 2020-03-27)
DX: A41.89 Other specified sepsis (principal); U07.1 COVID-19; J12.89 Other viral pneumonia; J96.01 Acute respiratory failure with hypoxia; D64.9 Anemia, unspecified; E83.51 Hypocalcemia; Z79.899 Other long term (current) drug therapy
CPT/HCPCS: 36600; 83880; 85378; 87804; 94150; G0378; J0456; J0696; J1100; J1650; J1885; J1940; J7030; J7040; J7050; J7060; Q0163; U0003